=== PATIENT | male | born 1955 | race Native Hawaiian/Other Pacific Islander ===

== ENCOUNTER 2017-07-12 01:38 | Emergency (ER) | payer BC ==
[~2017-07-12] VITALS: Ht 182.9 cm; Wt 112.0 kg
== END 2017-07-12 02:35 | disposition home or self-care (01) ==
LOC: ED 01:38
DX: M54.5 Low back pain (principal); M51.86 Other intervertebral disc disorders, lumbar region; M54.32 Sciatica, left side; M54.31 Sciatica, right side
CPT/HCPCS: 96372; 99283; J1885